=== PATIENT | female | born 1995 | race Caucasian/White ===

== ENCOUNTER 2016-12-31 15:02 | Emergency (ER) | payer OTHER ==
[~2016-12-31] VITALS: Ht 160 cm; Wt 60.0 kg
[~2016-12-31 15:02] MED LIST: BCPILLS PO; CETI10TA10 PO; DIPH25CA37 PO; EPP3/2 IM; PRED20TA PO
[2016-12-31] MEDS ORDERED: SODIUM CHLORIDE 0.9% 1000ML 1,000 ML IV STA (15:15)
[2016-12-31] MEDS ORDERED: DEXAMETHASONE SOD INJ 10 MG/ML VIAL IV ONE (15:15)
[2016-12-31] MEDS ORDERED: FAMOTIDINE 20MG/102 ML D5W IV STA (15:15)
[2016-12-31] MEDS ORDERED: DiphenhydrAMINE HCL 50 MG/ML VIAL IV STA (15:15)
[2016-12-31 15:16] VITALS: TEMP 37.4; Ht 160 cm; Wt 60.0 kg
[2016-12-31] MEDS ORDERED: PRED20TA PO (16:34)
--- NOTE | 2016-12-31 16:35 | EMERGENCY ROOM VISIT NOTE ---
History Report prepared by Jose D: Mabel Curiel Under the Supervision of: Dr. Jaylen Neville M.D. 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 She got up to leave and started to get itchy and hives. She used her EpiPen and took some Benadryl. Her hives went down, but her throat still feels tingly. She denies any swelling in her hands or feet. She also did an albuterol treatment which helped. She did not receive any Solu-Medrol. Source of History: patient Onset: FINANCIAL SERVICES TECHNICIAN Position: throat Quality: tingling Timing: other (persistent) Modifying Factors (Relieving): other (EpiPen, Benadryl, albuterol) Note: Pt reports hives. Pt denies welling in the hands or feet. Review of Systems See HPI for pertinent positives & negatives. A total of 10 systems reviewed and were otherwise negative. Past Medical & Surgical Medical Problems: (1) Peanut allergy Family History No pertinent family history No significant family history Social History Smoking Status: Never Smoker Alcohol Use: none Marital Status: single Housing Status: lives with roommate Occupation Status: [employer] student Current/Historical Medications Scheduled Control Pills ( Control Pills), 1 TAB PO QPM Epinephrine (Epipen), 0.3 MG IM UD Prednisone (Prednisone), 0 PO DAILY Scheduled PRN Cetirizine Hcl (Zyrtec), 10 MG PO DAILY PRN for ALLERGY Diphenhydramine Hcl (Benadryl), 12.5 MG PO Q6 PRN for ALLERGY Allergies Coded Allergies: Montelukast (Verified Allergy, Intermediate, ANAPHYLAXIS, 12/31/16) Nut Tree (Unverified Allergy, Intermediate, SKIN REACTION, 12/31/16) Peanut (Verified Allergy, Intermediate, ANAPHYLAXIS, 12/31/16) Physical Exam Vital Signs Date Time Temp Pulse Resp B/P Pulse Ox O2 Delivery O2 Flow Rate FiO2 12/31/16 16:44 86 18 127/68 100 12/31/16 15:16 Room Air 100 12/31/16 15:16 37.4 110 20 158/86 100 Room Air Physical Exam GENERAL: Patient is mildly anxious appearing and in minimal distress. HEENT: No acute trauma, normocephalic atraumatic, mucous membranes moist, no nasal congestion, no scleral icterus. NECK: No stridor, no adenopathy, no meningismus, trachea is midline. LUNGS: No dyspnea. Clear to auscultation and equal bilaterally. No wheeze, no rhonchi. HEART: Regular rate and rhythm. No murmurs, rubs, gallops appreciated. ABDOMEN: Soft, nontender, bowel sounds positive, no masses appreciated, no peritonitis. BACK: No midline tenderness, no CVA tenderness EXTREMITIES: Normal motion all extremities, no cyanosis, no edema. NEUROLOGIC: Alert and oriented, no acute motor or sensory deficits, no focal weakness, cranial nerves grossly intact. SKIN: No jaundice, no diaphoresis. Hives over patches of bilateral arms and forehead. Medical Decision & Procedures Medications Administered Medications (Trade) Dose Ordered Sig/Gene Route Start Time Stop Time Status Last Admin Dose Admin Famotidine (Pepcid 20mg/100 ml) 20 mg ONE STAT IV 12/31/16 15:15 12/31/16 15:16 DC 12/31/16 15:24 20 MG Diphenhydramine HCl (Benadryl Inj) 50 mg NOW STAT IV 12/31/16 15:15 12/31/16 15:16 DC 12/31/16 15:24 50 MG Dexamethasone Sodium Phosphate 10 mg 10 mg NOW ONCE IV 12/31/16 15:15 12/31/16 15:16 DC 12/31/16 15:24 10 MG Sodium Chloride (Nss 1000ml) 1,000 ml @ 999 mls/hr Q1H1M STAT IV 12/31/16 15:15 12/31/16 16:15 DC 12/31/16 15:24 999 MLS/HR ED Course 1511: The patient was evaluated in room A10. A complete history and physical exam was performed. 1515: NSS 1000 ml @ 999 mls/hr IV, Decadron Inj 10 mg IV, Benadryl Inj 50 mg IV , Famotidine 20 mg IV. 1630: I reevaluated the patient. She is feeling better and would like to go home. She will take Zantac for the next week and has Benadryl at home. We discussed prednisone dosing. I discussed results and discharge instructions: she verbalized understanding and agreement. The patient is ready for discharge. Medical Decision Differential: Allergic Reaction, Urticaria, Anaphylaxis, Hernandez-Jose Manuel Syndrome, Toxic Epidermal Necrolysis, Erythema Multiforme, Cellulitis, amongst other etiologies entertained. 21 yr old female arrives following allergic reaction to peanut dust in air. Symptoms already improving on arrival as took EpiPen along with benadryl FINANCIAL SERVICES TECHNICIAN. She has some mild hives, notes scratchy throat she is not anaphylactic. Given IV benadryl,decadron,pepcid,nss. Vastly improved and feeling well. No further symptoms. Previously tolerated Prednisone taper well. Advised BID Zantac while on prednisone along with PRN benadryl. Has more epipens and refills. Impression Primary Impression: Allergic reaction to food Additional Impression: Peanut allergy Scribe Attestation The scribe's documentation has been prepared under my direction and personally reviewed by me in its entirety. I confirm that the note above accurately reflects all work, treatment, procedures, and medical decision making performed by me. Departure Information Dispostion Home / Self-Care Prescriptions Prednisone (Prednisone) 20 Mg Tab 0 PO DAILY, #14 TAB 3 TABS DAILY FOR 2 DAYS, THEN 2 TABS DAILY FOR 2 DAYS, THEN 1 TAB DAILY FOR 2 DAYS, THEN 1/2 TAB DAILY FOR 2 DAYS. Prov: Jaylen Neville M.D. 12/31/16 Referrals [facility] (PCP) Patient Instructions ED Allergic React Food, [facility] Problem Qualifiers Primary Impression: Allergic reaction to food Encounter type: initial encounter Qualified Codes: T78.1XXA - Other adverse food reactions, not elsewhere classified, initial encounter
[2016-12-31 16:44] VITALS: BP 127/68; PULSE 86; O2SAT 100
== END 2016-12-31 16:45 | disposition home or self-care (01) ==
LOC: EDBD 15:02 → C.EDA 15:04
DX: T78.1XXA Other adverse food reactions, not elsewhere classified, initial encounter (principal); X58.XXXA Exposure to other specified factors, initial encounter; Z91.010 Allergy to peanuts; Z79.3 Long term (current) use of hormonal contraceptives

== ENCOUNTER → 2017-11-03 | Day surgery (SDC) | payer OTHER ==
[~2017-11-03] VITALS: Ht 160 cm; Wt 50.0 kg
[~2017-11-03] MED LIST changes: +B-CO1CAP3 PO; +CHOL2000 PO; +LINA1CAP2 PO; +MELA3TAB25 PO; +ONDA4TAB46 PO; +PANT40TA PO; -PRED20TA PO; +[UNRECOGNIZED DRUG - OTHER] PO
[2017-11-03 13:30] VITALS: BP 125/70; PULSE 71; O2SAT 98; Ht 160 cm; Wt 50.0 kg
[2017-11-03 14:23] VITALS: BP 118/60; PULSE 62; O2SAT 98
--- NOTE | 2017-11-03 16:22 | Procedure Note ---
Procedure Note Date of Service Nov 03, 2017. Procedure Note Procedure performed: Head-up tilt table testing Staff community recreation coordinator: Chad Perez MD Indication: Syncope Procedure in detail: Patient was informed of the risks benefits and alternatives to the intended procedure she understood such which proceed. She was placed in supine position on the tilt table. She was secured into place. Continuous monitoring in the form of pulse oximetry, blood pressure and telemetry with an initiated. After 15 minutes the patient was tilted upright to 80 degrees. Symptoms and hemodynamics were monitored until the conclusion of the test. At the conclusion of the test the patient's symptoms and hemodynamics were not return to normal prior to discharge. The patient tolerated procedure well. There were no immediate complications. Findings: Baseline blood pressure was 125/74 with a pulse of 66 With tilting there was not a significant derangement in the blood pressure or pulse initially Patient valve truly developed symptoms of numbness and tingling in the fingers as well as dizziness. She did have a brief loss of consciousness. This correlated with a drop in heart rate and pulse Blood pressure at the conclusion of procedure was 111/64 with a pulse of 64 Impression: Test was negative for POTS Test was positive for neurocardiogenic syncope, both vasodepressor and cardioinhibitory effect
== END | disposition home or self-care (01) ==
LOC: C.CATH 13:05
PROVIDERS: ATTEND Internal Medicine Clinical Cardiac Electrophysiology
DX: R00.0 Tachycardia, unspecified (principal); R42 Dizziness and giddiness; F41.9 Anxiety disorder, unspecified; J30.9 Allergic rhinitis, unspecified; Z82.5 Family history of asthma and other chronic lower respiratory diseases; Z83.42 Family history of familial hypercholesterolemia; Z83.2 Family history of diseases of the blood and blood-forming organs and certain disorders involving the immune mechanism; Z83.49 Family history of other endocrine, nutritional and metabolic diseases

== ENCOUNTER 2017-11-24 14:21 | Emergency (ER) | payer OTHER ==
[~2017-11-24] VITALS: Ht 160 cm; Wt 62.6 kg
[~2017-11-24 14:21] MED LIST changes: -DIPH25CA37 PO
[2017-11-24 14:28] VITALS: Ht 160 cm; Wt 62.6 kg
[2017-11-24] MEDS ORDERED: METHYLPREDNISOLONE 125 MG VIAL ONE (14:31)
[2017-11-24] MEDS ORDERED: RANITIDINE HCL 50 MG/100 ML D5W IV STA (14:31)
[2017-11-24 14:41] VITALS: O2SAT 100
[2017-11-24] MEDS ORDERED: EpINEphrine INJ 1MG/ML AMP 1 MG/ML AMP IM PRN (14:45)
--- NOTE | 2017-11-24 14:53 | EMERGENCY ROOM VISIT NOTE ---
ED Visit Note First contact with patient: 14:24 CHIEF COMPLAINT: Allergic reaction HISTORY OF PRESENTING ILLNESS: This is a 22-year-old female who presents to the emergency department via EMS complaining of allergic reaction that started around 1:30 PM today. Patient states that she [place] [employer] when she started to feel itchy and having a scratchy throat, this was shortly followed by throat tightness and shortness of breath. The patient took a 25 mg capsule of Benadryl and gave herself an EpiPen injection at 1:40 PM. She has a severe allergy to peanuts, states she has often had allergic reaction to just breathing in peanut dust in the air in the past. She also reports that she often has a biphasic allergic reaction a few hours after her first EpiPen injection. She reports that she usually gets hives with her allergic reactions , but has not had any rash this time. EMS gave her 50 mg of IM Benadryl and 125 mg IV Solu-Medrol, which has improved her symptoms. She denies any fevers/ chills or recent illness, headaches, neck pain or stiffness, chest pain, syncope , back pain, abdominal pain, nausea or vomiting, diarrhea, urinary symptoms, or rash. REVIEW OF SYSTEMS: A complete 10 point review of systems was reviewed with the patient with pertinent positives and negatives as per history of present illness. All else were negative. PAST MEDICAL HISTORY: Multiple previous allergic reactions, peanut allergy SOCIAL HISTORY: Lives at home. [employer] student. Denies tobacco use, alcohol , or illicit drug use ALLERGIES: Reviewed in chart PHYSICAL EXAM: CONSTITUTIONAL: Pleasant and cooperative. No acute distress. Well appearing and well nourished. HEENT: Normocephalic, atraumatic. PERRL, EOMI. TMs normal. Pharynx without erythema, edema, or exudate. There is no edema of the lips, face, or tongue. Moist mucous membranes. NECK: Supple, full active range of motion without discomfort. RESPIRATORY: Clear to auscultation bilaterally with no wheezing, crackles, or rhonchi. No tachypnea. No accessory muscle use. No audible stridor or stridor with auscultation. Equal expansion bilaterally. CARDIOVASCULAR: Regular rate and rhythm with no murmurs, rubs or gallops. Normal peripheral perfusion. No edema. GASTROINTESTINAL: Soft, nontender, nondistended. No palpable masses or HSM. Bowel sounds present in all quadrants. MUSCULOSKELETAL: Full range of motion of all joints without discomfort. INTEGUMENTARY: No rash or other significant dermatologic conditions noted. NEUROLOGIC: Alert and oriented X 4 with normal affect. Cranial nerves II-XII grossly intact. No focal neurologic deficits noted. Normal strength and sensation in all 4 extremities. Normal speech. Normal gait observed. ED COURSE AND MEDICAL DECISION MAKING: CC: Patient presenting with complaint of allergic reaction DIFFERENTIAL DIAGNOSIS: Includes, but not limited to allergic reaction, anaphylaxis, dehydration, among others. INTERPRETATION OF LABS: Urine negative. MEDICATION RECONCILIATION: I attest that I have personally reviewed the patient 's current medication list. INITIAL VITAL SIGNS REVIEW: I reviewed the patient's vital signs and interpret them as follows: T: Afebrile; BP: Normotensive; HR: Tachycardic; RR: Within normal limits; Pulse Ox: Within normal limits on room air. Blood pressure screening: The patient was found to have normal blood pressure on screening and does not require follow-up for repeat blood pressure check. SUMMARY: Patient was evaluated at bedside, history and physical exam performed. I received report from EMS personnel at bedside. Patient is alert and oriented, in no acute distress, resting calmly in the stretcher. Lungs are clear with no wheezing or stridor and no concerns for increased risk for effort. There is no facial or oral swelling noted on exam. No rash or hives noted on exam. Orders were placed at bedside for urine , IV ranitidine, and will keep patient on cardiac monitoring to evaluate for any return of allergic reaction. Patient discussed with Dr. Bright, who agrees with my assessment and plan. Labs and imaging reviewed as above, or is negative. Patient was observed in the emergency department for > 4 hours after Epi-Pen injection. Patient reassessed multiple times throughout ED stay, she states her symptoms are fully resolved after receiving the IV ranitidine. She is tolerating PO fluids without difficulty. Tachycardia is improved. Patient was updated on all results and plan for discharge, she was instructed to follow up closely with her PCP. She states that she does not need refills of her Epi-Pen at this time. Rx for prednisone burst sent to pharmacy and patient was educated on its use. Patient was also given strict return precautions should her symptoms worsen, she verbalized understanding. Patient was discharged home in stable condition and ambulatory. Problem List Medical Problems: (1) Peanut allergy Status: Chronic Current/Historical Medications Scheduled B-Complex Vitamins (B Complex), 1 TAB PO DAILY Control Pills ( Control Pills), 1 TAB PO QPM Calcium Carbonate-Vitamin D (Calcium), 1 TAB PO DAILY Cholecalciferol (Vitamin D3), 1 CAP PO DAILY Epinephrine (Epipen), 0.3 MG IM UD Linaclotide (Linzess), 1 TAB PO QAM Melatonin (Melatonin Cr), 1 TAB PO DAILY Multivit/Min/Iron/Fol Ac/Pren ( Vitamin), 1 TAB PO DAILY Pantoprazole (Protonix), 1 TAB PO DAILY Prednisone (Prednisone Tab), 40 MG PO DAILY [Domperidone], 10 MG PO TID Scheduled PRN Cetirizine Hcl (Zyrtec), 10 MG PO DAILY PRN for ALLERGY Allergies Coded Allergies: Montelukast (Verified Allergy, Intermediate, ANAPHYLAXIS, 11/24/17) Nut Tree (Unverified Allergy, Intermediate, SKIN REACTION, 11/24/17) Peanut (Verified Allergy, Intermediate, ANAPHYLAXIS, 11/24/17) Vital Signs Date Time Temp Pulse Resp B/P (MAP) Pulse Ox O2 Delivery O2 Flow Rate FiO2 11/24/17 17:57 37.1 95 18 128/78 98 Room Air 11/24/17 16:45 98 18 128/78 99 Room Air 11/24/17 15:05 96 18 117/67 100 Room Air 11/24/17 14:41 100 Room Air 11/24/17 14:40 100 Room Air 11/24/17 14:37 104 11/24/17 14:28 37.3 96 22 138/89 100 Room Air 11/24/17 14:24 Room Air Laboratory Results Test 11/24/17 15:05 Urine Test NEG (NEG) Medications Administered Medications (Trade) Dose Ordered Sig/Gene Route Start Time Stop Time Status Last Admin Dose Admin Ranitidine HCl (zANTac IV) 50 mg NOW STAT IV 11/24/17 14:31 11/24/17 14:34 DC 11/24/17 14:46 50 MG Departure Information Impression Primary Impression: Acute allergic reaction Dispostion Home / Self-Care Condition GOOD Prescriptions Prednisone (Prednisone Tab) 20 Mg Tab 40 MG PO DAILY for 4 Days, #8 TAB 2 TABS DAILY FOR 4 DAYS. Prov: Alla ShinAmanda, ASHTYN 11/24/17 Referrals Hay Bailey M.D. (PCP) Patient Instructions ED Allergic React Food, ED Anaphylaxis General, [facility] Additional Instructions You have been treated in the Emergency Department for an Allergic Reaction. You have been treated and monitored in the Emergency Department appropriately. You should take Benadryl (diphenhydramine) 25-50 mg orally every 6 hours for the next 3 days. This is to help prevent a rebound allergic reaction in the event that allergens are still present in your system.This medication is over- the-counter and you will NOT need a prescription to purchase this at your local pharmacy. You should take Zantac (ranitidine) 150 mg orally twice a day for the next 3 days. This medication is [id number] and you will NOT need a prescription to purchase this at your local pharmacy. You have been prescribed Prednisone 40 mg to be taken orally once a day for the next 4 days. This is an anti-inflammatory medicine to be used to help minimize your symptoms. You should take the COMPLETE course of the medication. If you begin to experience the symptoms that brought you to the Emergency Department today, you should give yourself your EpiPen injection and then report IMMEDIATELY to the Emergency Department for further evaluation and treatment. As with every Emergency Department visit, you should follow-up with your primary care provider in 2-3 days for reevaluation. Return to the Emergency Department if your current symptoms worsen despite treatment course outlined above, or if you develop any of the following symptoms : wheezing, tongue or face swelling, tightness in your throat, shortness of breath, chest pain, or passing out. School Instructions Return To School: 1 day Problem Qualifiers Primary Impression: Acute allergic reaction Encounter type: initial encounter Qualified Codes: T78.40XA - Allergy, unspecified, initial encounter
[2017-11-24] MEDS ORDERED: CALC-51 PO (15:20)
[2017-11-24] MEDS ORDERED: DOMPERIDONE PO (15:20)
[2017-11-24] MEDS ORDERED: PRENTAB26 PO (15:20)
[2017-11-24] MEDS ORDERED: PRED20TA2 PO (17:24)
[2017-11-24 17:57] VITALS: BP 128/78; PULSE 95; TEMP 37.1; O2SAT 98
== END 2017-11-24 18:07 | disposition home or self-care (01) ==
LOC: EDBD 14:21 → C.EDA 14:22
DX: T78.40XA Allergy, unspecified, initial encounter (principal); X58.XXXA Exposure to other specified factors, initial encounter; Z91.010 Allergy to peanuts; Z79.3 Long term (current) use of hormonal contraceptives; Z79.899 Other long term (current) drug therapy; Z88.8 Allergy status to other drugs, medicaments and biological substances

== ENCOUNTER → 2018-01-15 | Outpatient (CLI) | payer OTHER ==
[~2018-01-15] MED LIST changes: +CALC-51 PO; +DOMPERIDONE PO; -ONDA4TAB46 PO; +PRENTAB26 PO; -[UNRECOGNIZED DRUG - OTHER] PO
[2018-01-15 16:05] LABS: BLOOD UREA NITROGEN 11 mg/dl (7-18); CALCIUM 9.6 mg/dl (8.5-10.1); CARBON DIOXIDE 28 mmol/L (21-32); CREATININE 0.58 mg/dl (0.60-1.20); GLUCOSE 73 mg/dl (70-99); POTASSIUM 3.7 mmol/L (3.5-5.1); SODIUM 140 mmol/L (136-145)
[2018-01-19 02:20] LABS: PECAN NUT CLASS 0; PECAN NUT IGE <0.10 KU/L; PISTACHIO CLASS 0; PISTACHIO IGE <0.10 KU/L; RAST ALMOND CLASS 0; RAST ALMOND IGE <0.10 KU/L
== END | disposition home or self-care (01) ==
LOC: C.LAB1850 10:17
PROVIDERS: ATTEND Internal Medicine Pulmonary Disease
DX: R55 Syncope and collapse (principal); T78.05XA Anaphylactic reaction due to tree nuts and seeds, initial encounter; X58.XXXA Exposure to other specified factors, initial encounter